=== PATIENT | male | born 1975 | race African-American/Black ===

== ENCOUNTER 2019-08-27 10:30 | Emergency (ER) | payer SELFPAY ==
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
[2019-08-27] MEDS ORDERED: Ketorolac Tromethamine 30 MG/ML VIAL ONE (11:27)
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
== END 2019-08-27 12:15 | disposition home or self-care (01) ==
LOC: ERS 10:30
DX: M25.511 Pain in right shoulder (principal); M54.6 Pain in thoracic spine; V59.9XXA Occupant (driver) (passenger) of pick-up truck or van injured in unspecified traffic accident, initial encounter
CPT/HCPCS: 71046; 96372; J1885

== ENCOUNTER 2022-06-05 19:30 | Outpatient (CLI) | payer BC | END 2022-06-05 19:31 | disposition home or self-care (01) | LOC: SLEEPLAB 19:30 | PROVIDERS: ATTEND Family Medicine | DX: G47.33 Obstructive sleep apnea (adult) (pediatric) (principal); I10 Essential (primary) hypertension; R53.83 Other fatigue; R06.83 Snoring | CPT/HCPCS: 95811 ==